=== PATIENT | male | born 1945 | race Caucasian/White ===

== ENCOUNTER 2016-11-20 09:36 | Emergency (ER) | payer MEDICARE ==
[~2016-11-20] VITALS: Ht 182.9 cm; Wt 93.2 kg
[2016-11-20 09:40] VITALS: BP 145/110; PULSE 157; RESP 13; O2SAT 97
--- NOTE | 2016-11-20 10:01 | ED.REPORT ---
HPI-General Illness Date of Service November 20, 2016 ED Provider: Deshawn Nur MD The patient is a 71 year old male w/ a hx of HTN who presents to the ED due to an episode of heart palpitations last night. Pt reports that for the past few weeks he has, "not been feeling well," and states that, "something is off." He does not currently report palpitations at the ED. Associated symptoms include high blood pressure, dull headache, fatigue, dizziness, and diaphoresis. Pt denies chest pain and SOB. Nursing Notes Stated Complaint: INCREASED BP/ POSS A-FIB Chief Complaint: Dysrhythmia/Cardiac Nursing Notes Reviewed: Yes ([employer] not reconciled) Allergies: Coded Allergies: Penicillins (Verified Allergy, Intermediate, Nausea,Vomiting, 11/12/15) Sulfa (Sulfonamide Antibiotics) (Verified Adverse Reaction, Unknown, ) Scheduled Metoprolol Tartrate (Metoprolol Tartrate) 25 Mg Tablet 25 MG PO BID Warfarin Sodium (Warfarin Sodium) 5 Mg Tablet 5 MG PO DAILY General Time Seen by MD: 09:58 Chief Complaint Other (heart palpitations ) Hx Obtained From: Patient Arrived By: Walk-in Sudden in Onset?: Yes Onset Occurred: Yesterday Symptom Duration: Since onset Severity: Current: No pain currently Recent Healthcare: No recent doctor visit, No recent hospitalization Similar Sx Previous: No Past Medical History Past Medical History Notes: PCP: Dr. 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 Physical Exam Vital Signs Vital Signs Date Time Temp Pulse Resp B/P Pulse Ox O2 Delivery O2 Flow Rate FiO2 11/20/16 12:51 109 24 110/61 97 Room Air 11/20/16 11:53 111 19 125/83 98 Room Air 11/20/16 10:58 114 13 125/84 97 Room Air 11/20/16 09:40 36.8 157 13 145/110 97 Room Air Initial VS: Reviewed, Unavailable (no vitals on chart), Vital signs abnormal ( HR 144 on EKG) General/Constitutional: Awake, Alert, No acute distress, Cooperative, Not toxic appearing Head / Eyes: Normocephalic, PERRL, EOMI ENT: Airway patent, Mucous membranes moist Neck: Supple, No swelling Respiratory / Chest: Atraumatic, Breath sounds NL, Breath sounds = bilat Heart Rate / Rhythm: Positive: Tachycardia Abdomen: Soft, Non-tender Back: Atraumatic, Inspection NL, Full range of motion Upper Extremities Upper Extremity / MS: Atraumatic, Full range of motion, No deformity Congenital absence L forearm Lower Extremity / Pelvis / MS: Atraumatic, Full range of motion, No deformity Skin: Atraumatic, Warm, Dry Neurologic: Oriented X3, Speech NL, No motor deficits Interpretation & Diagnostics Interpretation & Diagnostics: Patient seen 11/12/2015 labs from that visit reviewed, include slightly abnormal lactic acid, cultures were "held" there is no results Lab Results Interpretation Result Diagram: 11/20/16 0957 11/20/16 0957 Test 11/20/16 09:57 White Blood Count 8.7th/mm3 (3.8-10.1) Red Blood Count 6.03mil/mm3 (4.40-5.80) Hemoglobin 17.5g/dL (13.8-17.2) Hematocrit 49.8% (41.0-50.0) Mean Corpuscular Volume 82.6fL (81-100) Mean Corpuscular Hemoglobin 29.0pg (27.0-35.0) Mean Corpuscular Hemoglobin Concent 35.1% (32.0-37.0) Red Cell Distribution Width 13.0% (12.3-15.4) Platelet Count 316bil/L (150-400) Neutrophils (%) (Auto) 54.3% (40-74) Lymphocytes (%) (Auto) 34.0% (14-46) Monocytes (%) (Auto) 8.3% (4-12) Eosinophils (%) (Auto) 3.2% (0-5) Basophils (%) (Auto) 0.1% (0-3) Sodium Level 137mEq/L (134-144) Potassium Level 4.4mEq/L (3.5-5.2) Chloride Level 101mEq/L (97-108) Carbon Dioxide Level 19mmol/L (18-29) Blood Urea Nitrogen 7mg/dL (8-27) Creatinine 0.87mg/dL (0.76-1.27) Estimat Glomerular Filtration Rate 92mL/min (>59) Glucose Level 122mg/dL (60-99) Lactic Acid Level 1.2mmol/L (0.4-2.0) Calcium Level 9.2mg/dL (8.5-10.1) Magnesium Level 2.2mg/dL (1.6-2.6) Total Bilirubin 0.8mg/dL (0.0-1.2) Aspartate Amino Transf (AST/SGOT) 26U/L (0-50) Alanine Aminotransferase (ALT/SGPT) 21U/L (0-44) Alkaline Phosphatase 79U/L (25-160) Troponin T < 0.010ug/L (0.0-0.011) Total Protein 7.6g/dL (6.4-8.4) Albumin 4.0g/dL (3.4-5.0) Thyroid Stimulating Hormone (TSH) 1.900uIU/mL (0.450-4.500) Hold Hughes Top Tube Received (Received) Lab Results Interpretation: CBC nl CMP nl TSH nl ECG Interpretation ECG Interpretation: Atrial fibrillation with narrow complex at a rate of 144, no signs of ischemia, the atrial fibrillation is new as of 11/12/2015 in comparison Time: 10:01 Interpreted by: ED physician X-Ray Chest Interpretation Chest Xray Interpretation: IMPRESSION: No acute disease Dictated by: Ruben Wright M.D. on 11/20/2016 at 10:38 Approved by: Ruben Wright M.D. on 11/20/2016 at 10:39 View: Portable Interpretation / Wet Read by: Interpret - Radiologist Re-Eval/Medical Decision Med Decision/Clinical Course This is a 71-year-old male who developed a sense of palpitations rapid heart rate, and also noted some high blood pressure home with urgent care was referred to the ED. Reports she has been having some palpitations and some mild fatigue over the past couple weeks. He denies chest pain or shortness of breath. He denies previous history of atrial fibrillation. Denies alcohol use , is not on any medications just the supplements's, specifically a vitamin B12 energy supplement that he states does not contain caffeine. On exam he has atrial fibrillation with rapid ventricular response, he is got a congenitally absent left arm but otherwise has a normal exam. He has no murmurs , no findings of heart failure, no findings of venous thromboembolism evident on clinical exam. Chest x-rays negative, blood work is normal, EKG reveals A. fib but no ischemic changes. TSH is normal. The patient received IV metoprolol with immediate rate control and was given oral metoprolol. Appears well, not finding any indication requires hospitalization. I discussed his case with the primary care physician Dr. Cunningham and the plan is to initiate outpatient metoprolol 25 mg twice a day metoprolol tartrate, and initiate warfarin-the patient received 5 mg by mouth dose per pharmacy recommendations. The family is interested in talking Dr. Morin about alternatives to warfarin therapy, and the patient is discharged in good condition. The recall today to schedule an appointment. Routine and return precautions reviewed. Printed information on atrial fibrillation and on the warfarin were provided. Source of Hx: Old records Time of Eval: 12:20 Re-Evaluation/Progress Note: Pt rechecked. Blood tests and x-rays are reassuring. Spoke with Dr. Morin and he agrees that you have developed atrial fibrillation. This can increase your risk of developing a stroke. Plan to start on metrolopolol and warfarin. Appointment with Dr. Morin tomorrow. Consultation : Referral / Consult Name: Jayden Morin MD Call Returned at: 11:45 Water System Operator: Agrees with eval, Agrees with plan Note: Case discussed. Dr. Morin advises to start on Warfarin. Differential Diagnosis: Negative: Abdominal pain, Acute coronary syndrome, Diabetes mellitus, Medical clearance, Neutropenia, Pneumonia Counseled Regarding: Diagnosis, Lab results, Need for follow-up, When/why to return to ED Discharge & Departure Primary Impression: New onset atrial fibrillation Disposition: Home Discharge Condition All VS Reviewed: Yes Condition: Stable Additional Instructions: 1. You have developed heart rhythm called atrial fibrillation. 2. This results and her heart going naturally to fasting causing the sense of palpitations and fatigue. 3. Your blood tests and Xray were normal. 4. You do need to take the medicine metoprolol 25 mg twice a day starting today. This helps prevent the heart from going too fast and worsening symptoms. 5. Additionally is recommended that you be on a blood thinner warfarin for tachycardia from strokes while you are hurts in this condition. Take 5 mg daily. This is a medication for her blood levels will need to be drawn next week. Generally the goal is to have on this medicine for a few weeks, off in 6 weeks, and if her heart has not gone back into a normal rhythm by that time, then attempts at a" cardioversion" can be pursued. 6. I have talked with Dr. Morin, he would likely to call his office this morning, his aching gets in tomorrow for an appointment to discuss the next steps. 7. Return if new or worsening symptoms occur. Referrals: HERIBERTO FOX MD (PCP) Benjie Attestation Portion of this note were transcribed by Carmen Glover. I, Dr. Nur, personally performed the history, physical exam, and medical decision-making: I reviewed and confirmed the accuracy for the information in the transcribed note. Signed by: benjie Javier, 11/20/16 1200 copies to: HERIBERTO FOX MD, Matthew F MD November 20, 2016 10:01 Carmen Glover November 20, 2016 10:18
[2016-11-20 10:02] LABS: BASOPHILS % (AUTO) 0.1 % (0-3); EOSINOPHILS % (AUTO) 3.2 % (0-5); MONOCYTES % (AUTO) 8.3 % (4-12); Mean Corpuscular Volume 82.6 fL (81-100); NEUTROPHILS % (AUTO) 54.3 % (40-74); Platelet Count 316 bil/L (150-400)
[2016-11-20] MEDS ORDERED: MeTOProlol 1 mg/mL 5 mL Inj IVPUSH ONE ×2 (10:20→10:50)
[2016-11-20 10:33] LABS: Magnesium 2.2 mg/dL (1.6-2.6)
--- NOTE | 2016-11-20 10:40 | DRSVH ---
PROCEDURE: X-RAY CHEST ONE VIEW, PORTABLE ([id number]) INDICATIONS: sob TECHNIQUE: One view of the chest was acquired. COMPARISON: [facility], , CHEST 2VW, 10/22/2011, 17:27. FINDINGS: Surgical changes and devices: None. Lungs and pleura: No pleural effusions or pneumothorax. Lungs are clear. Mediastinum: Mediastinal contours appear normal. Heart size is normal. Bones and chest wall: No suspicious bony lesions. Overlying soft tissues appear unremarkable. IMPRESSION: No acute disease Dictated by: Ruben Wright M.D. on 11/20/2016 at 10:38 Approved by: Ruben Wright M.D. on 11/20/2016 at 10:39
[2016-11-20 10:58] VITALS: BP 125/84; PULSE 114; RESP 13; O2SAT 97
[2016-11-20 11:03] LABS: TROPONIN T < 0.010 ug/L (0.0-0.011)
[2016-11-20] MEDS ORDERED: MeTOProlol XL 25 mg ER24 Tablet PO ONE (11:40)
[2016-11-20 11:53] VITALS: BP 125/83; PULSE 111; RESP 19; O2SAT 98
[2016-11-20] MEDS ORDERED: WARF5TAB7 PO (12:07)
[2016-11-20] MEDS ORDERED: METO25TA6 PO (12:07)
[2016-11-20 12:51] VITALS: BP 110/61; PULSE 109; RESP 24; O2SAT 97
== END 2016-11-20 12:46 | disposition home or self-care (01) ==
LOC: SED 09:36
DX: I48.91 Unspecified atrial fibrillation (principal); I10 Essential (primary) hypertension; K90.0 Celiac disease; Z87.39 Personal history of other diseases of the musculoskeletal system and connective tissue; Z87.76 Personal history of (corrected) congenital malformations of integument, limbs and musculoskeletal system; Z79.01 Long term (current) use of anticoagulants; Z88.0 Allergy status to penicillin; Z88.2 Allergy status to sulfonamides

== ENCOUNTER 2016-11-22 12:46 | Emergency (ER) | payer MEDICARE ==
[~2016-11-22] VITALS: Ht 182.9 cm; Wt 95.5 kg
[~2016-11-22 12:46] MED LIST: METO25TA6 PO; WARF5TAB7 PO
[2016-11-22 12:49] VITALS: BP 125/79; PULSE 69; RESP 16; O2SAT 95
--- NOTE | 2016-11-22 13:18 | ED.REPORT ---
HPI-General Illness Date of Service Nov 22, 2016 ED Provider: RupaliblasIsidro DO 71-year-old male here after being seen 2 days ago for an episode of atrial fibrillation with rapid ventricular response that became rate controlled after metoprolol presents today feeling fatigued and noting that has pharmacist told him that he needed to have an INR checked after 3 days of warfarin which he just began at his last ER visit. He presents with a prescription for Xarelto from Dr. Morin his PCP whom he saw yesterday, which he has not filled yet and both he and his are uncertain if he should be taking Xarelto or Warfarin. He continues to feel fatigued like he has for the past month. His symptoms are not worse since beginning metoprolol. Nursing Notes Stated Complaint: HEART ISSUE/SENT BY Chief Complaint: General Complaint Nursing Notes Reviewed: Yes Allergies: Coded Allergies: Penicillins (Verified Allergy, Intermediate, Nausea,Vomiting, 11/12/15) Sulfa (Sulfonamide Antibiotics) (Verified Adverse Reaction, Unknown, ) Scheduled Metoprolol Tartrate (Metoprolol Tartrate) 25 Mg Tablet 25 MG PO BID Warfarin Sodium (Warfarin Sodium) 5 Mg Tablet 5 MG PO DAILY General Time Seen by MD: 13:18 Chief Complaint Other (fatigue) Hx Obtained From: Patient Arrived By: Walk-in Sudden in Onset?: No Recent Healthcare: No recent hospitalization, Recent doctor visit Similar Sx Previous: Yes Past Medical History Past Medical History Notes: PCP: Dr. 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 Reports: Hypertension Past Surgical History Tonsillectomy age 3 Exploratory laparotomy in 1989 Smoking History Never Smoker Social History Alcohol Use: Denies alcohol use Drug Use: Denies drug use Other Social History: Good social support, , Local resident Ambulatory Status Independent Review of Systems Full Review of Systems Constitutional: Reports: Fatigue, Denies: Chills, Fever Respiratory: Denies: Dyspnea on exertion, Shortness of breath Cardiovascular: Denies: Chest pain GI: Reports: Nausea, Denies: Abdominal pain Musculoskeletal: Denies: Back pain Skin: Denies Bruising Neurologic: Denies: Abnormal movement, Change LOC, Focal weakness, Headache, Lightheaded Complete sys rev & neg: except as marked. Physical Exam Vital Signs Vital Signs Date Time Temp Pulse Resp B/P Pulse Ox O2 Delivery O2 Flow Rate FiO2 11/22/16 16:13 36.1 70 18 142/72 97 Room Air 11/22/16 16:08 70 18 142/72 97 Room Air 11/22/16 13:44 70 20 117/68 95 Room Air 11/22/16 12:49 36.1 69 16 125/79 95 Room Air Initial VS: Reviewed General/Constitutional: Awake, Alert Head / Eyes: Atraumatic, Normocephalic, PERRL, EOMI Respiratory / Chest: Atraumatic, Breath sounds NL, Breath sounds = bilat, No respiratory distress Cardiovascular: Heart rate NL, Regular rhythm, Heart sounds NL Abdomen: Atraumatic, Soft, Non-tender Skin: Atraumatic, Color NL, No rash, Warm, Dry Neurologic: Oriented X3, Speech NL, No motor deficits, No sensory deficits Psychiatric: Affect NL, Mood NL Interpretation & Diagnostics Lab Results Interpretation Test 11/22/16 15:41 Urine Color Yellow (YELLOW) Urine Appearance Clear (CLEAR,HAZY) Urine pH 6.0 (5.0-8.0) Urine Specific Sunflower <1.005 (1.003-1.035) Urine Protein Negativemg/dL (NEG,TRACE) Urine Glucose (UA) Negativemg/dL (NEGATIVE) Urine Ketones Negativemg/dL (NEGATIVE) Urine Occult Blood Negative (NEGATIVE) Urine Nitrite Negative (NEGATIVE) Urine Bilirubin Negative (NEGATIVE) Urine Urobilinogen Normalmg/dL (NORMAL) Urine Leukocyte Esterase Negative (NEGATIVE) Urine RBC 0-2/hpf (0-2) Urine WBC 0-5/hpf (0-5) Urine Epithelial Cells Few/hpf (NONE-MOD) Urine Crystals None seen (NONE SEEN) Urine Bacteria Few/hpf (NONE-FEW) Urine Hyaline Casts None/lpf (NONE) Urine Granular Casts None seen (NONE SEEN) Urine Waxy Casts None seen (NONE SEEN) Urine Red Blood Cell Casts None seen (NONE SEEN) Urine White Blood Cell Casts None seen (NONE SEEN) Urine Mucus None seen (None Seen) Urine Trichomonas None seen (NONE SEEN) Urine Yeast None (NONE SEEN) Urinalysis Comment None Urine Culture Reflexed Not indicated ECG Interpretation ECG Interpretation: No ST changes. When compared to previous EKG from 11/20/16 now converted to sinus rhythm Time: 14:17 Interpreted by: ED physician Normal ECG Interpretation: Normal rate (67), Normal sinus rhythm Re-Eval/Medical Decision Med Decision/Clinical Course 71 y/o male with recent development of paroxysmal atrial fibrillation which became rate controlled with metoprolol 2 days ago in the ER and intervally cardioverted to sinus rhythm presents for INR check and syptoms of ongoing fatigue for the past month. I discussed his plan of care with Dr. Morin his PCP who notes the pt is not a good candidate for warfarin therapy and recommends xarelto instead. With complete blood workup 2 days ago that was normal he and I did not feel bloodwork needed to be taken and after discussing it with pt, my initial lab orders were canceled as pt is now stopping warfarin and starting Xarelto and knowing his INR is no longer of value. I discussed the above points with pt, his and his daughter and they understand and agree. I also let them know Dr. Morin will be contacting them to set up an echo and with a referral to cardiology. Pt states he his feeling much better at the time of discharge and back to his baseline. Time of Eval: 15:14 Discharge & Departure Primary Impression: Paroxysmal atrial fibrillation Additional Impression: Fatigue Fatigue type: unspecified Qualified Code: R53.83 - Other fatigue Disposition: Home Discharge Condition All VS Reviewed: Yes Condition: Stable Patient Instructions: A-fib (Atrial Fibrillation) (ED) Additional Instructions: Your ER visit today included an interview, physical exam, EKG and a discussion with your PCP. Your EKG appears normal today and your heart is in a normal rhythm. The metoprolol that you are taking is working. Please continue this medication. Your PCP, Dr. Morin would like you to take Xarelto rather than warfarin for convenience and ease of compliance. Discontinue warfarin(Coumadin ) and use Xarelto instead. If you find that this is completely not affordable discuss alternative options with Dr. Morin. He is arranging an ultrasound of your heart and a consultation with cardiology and will call you to set these up. I am glad that you are feeling better at the time of being discharged today. We elected not to do your blood tests because they were normal just 2 days ago and your heart and other exam findings are normal. Please return to the ER if you develop new or worsening symptoms. Referrals: Jayden Morni MD (PCP) Scribe Attestation Portions of this note were transcribed by Sidra Rivera. I, Dr. Crenshaw personally performed the history, physical exam and medical decision-making; I reviewed and confirmed the accuracy of the information in the transcribed note. Signed by: Sidra Stokes, 11/22/16 and 1530 copies to: Jayden Morin MD, Gary R DO Nov 22, 2016 13:18 Emilie Rivera Nov 22, 2016 15:08
[2016-11-22 13:44] VITALS: BP 117/68; PULSE 70; RESP 20; O2SAT 95
[2016-11-22 16:03] LABS: APPEARANCE,URINE CLEAR (CLEAR,HAZY); COLOR,URINE YELLOW (YELLOW); OCCULT BLOOD,URINE NEGATIVE (NEGATIVE); UROBILINOGEN,URINE NORMAL (NORMAL)
[2016-11-22 16:08] VITALS: BP 142/72; PULSE 70; RESP 18; O2SAT 97
[2016-11-22 16:13] VITALS: BP 142/72; PULSE 70; RESP 18; O2SAT 97
== END 2016-11-22 16:28 | disposition home or self-care (01) ==
LOC: SED 12:46
DX: I48.0 Paroxysmal atrial fibrillation (principal); R53.83 Other fatigue; I10 Essential (primary) hypertension; Z88.0 Allergy status to penicillin; Z88.2 Allergy status to sulfonamides; Z79.01 Long term (current) use of anticoagulants